=== PATIENT | female | born 1975 | race Hispanic/Latino ===

== ENCOUNTER 2023-06-18 20:21 | Emergency (ER) | payer BC, OTHER ==
[~2023-06-18] VITALS: Ht 152.4 cm; Wt 53.5 kg
[2023-06-18 20:22] VITALS: BP 120/70; PULSE 97; RESP 20
== END 2023-06-18 21:34 | disposition left against medical advice (07) ==
LOC: EDH 20:21
DX: R50.9 Fever, unspecified (principal); Z53.21 Procedure and treatment not carried out due to patient leaving prior to being seen by health care provider
CPT/HCPCS: 99281